=== PATIENT | male | born 1955 | race Caucasian/White ===

== ENCOUNTER 2023-04-15 10:49 | Outpatient (AMB) | payer MEDICARE, SELFPAY ==
--- NOTE | 2023-04-15 11:31 | HO.SPINEOV ---
Intake Intake Visit Reasons: radiculopathy Intake Note: Mr. Gunter is here today c/o low back pain w/tingling and numbness. MRI done @ [facility]/brought disc. Plant Quality Manager Required: No Assessment & Plan Assessment & Plan (1) Neurogenic claudication due to lumbar spinal stenosis: Code(s): M48.062 - Spinal stenosis, lumbar region with neurogenic claudication (2) Spondylolisthesis, lumbar region: Code(s): M43.16 - Spondylolisthesis, lumbar region Plan Dear colleague Thank you for referring Lenard Gunter to the office today with a chief complaint of back pain and bilateral leg numbness. HPI: this 67-year-old male who has a 1 year history of progressive low back pain and numbness and tingling, predominantly in the distal part of his bilateral legs and to a lesser degree in his buttocks and posterior thighs. The symptoms are constantly present and independent off activity. He reports no weakness. He underwent an epidural steroid injection that only helped for 2 weeks. The following conservative treatment options were tried without success antiinflammatories, tylenol, physician guided home exercise plan, cortisone shots PMH: Hypertension, gout, arthritis, asthma, GERD Social history: Medications: Enalapril, allopurinol, montulekast, vitamin-D, calcium, famotidine, nabumetone Allergies: NKDA Physical Exam: Pleasant male. no neurological deficits for upper extremities. Lower extremity show normal reflexes and strength. There is a diminished sensation from the shins into his feet and paresthesias in his posterior thighs Radiological Studies: MRI done at [facility] [place] shows a grade 1-2 L4-5 spondylolisthesis and severe associated lumbar stenosis. A dynamic lumbar x-ray today shows instability of the grade 2 spondylolisthesis L4-5. Impression/Plan: This patient is suffering from a lumbar spondylolisthesis with associated severe L4-5 spinal stenosis that causes low back pain and bilateral leg numbness. There is severe compression of the neural structures and therefore I recommended a minimally invasive correction of the lumbar spondylolisthesis via an oblique lumbar interbody fusion to indirectly decompress the neural structures. I described procedure and expected postoperative course. He will most likely go for 2nd opinion before he makes a surgical decision. Thank you for allowing me to participate in your patients care. total time spent was 50 minutes in counseling ,coordination of plan, personal review of imaging, surgical decision making and subsequent plan Martir Rendon MD, PhD Spine Fellowship Trained Neurosurgeon Director, [facility] Orders: Orders XR lumbar spine 4V min Today M43.16 - Spondylolisthesis, lumbar region, M48.062 - Spinal stenosis, lumbar region with neurogenic claudication Coding Level of Care Code New Pt Level 4 (02856) Diagnoses Neurogenic claudication due to lumbar spinal stenosis M48.062 Spondylolisthesis, lumbar region M43.16
== END 2023-04-15 12:39 | disposition home or self-care (01) ==
PROVIDERS: PCP Internal Medicine; Referring Provider Physician Assistant; Visit Provider Neurological Surgery
DX: M48.062 Spinal stenosis, lumbar region with neurogenic claudication (principal); M43.16 Spondylolisthesis, lumbar region
CPT/HCPCS: 99204

== ENCOUNTER 2023-04-15 10:49 | Outpatient (REF) | payer MEDICARE, SELFPAY ==
--- NOTE | ~2023-04-15 | XR_ITS ---
EXAMINATION: XR LUMBOSACRAL SPINE CLINICAL INFORMATION: Spondylolisthesis, lumbar region COMPARISON: None available. TECHNIQUE: 4 views of the lumbar spine, inclusive of flexion and extension views, were obtained. FINDINGS: There are 5 nonrib-bearing lumbar-type vertebral bodies. The height of vertebral bodies is well-maintained. There is mild disc space narrowing with marginal osteophyte formation at L3-L4 and L4-L5. There is mild retrolisthesis of L3 with respect to L4 and grade 1 anterolisthesis of L4 with respect to L5. This is unchanged on flexion. There is no change at retrolisthesis of L3 respect to L4 on the extension views, however, there is slight decrease in anterolisthesis of L4 on L5 on the extension views. Degenerative facet joint disease is seen at multiple levels, most pronounced at L4-L5 and L5-S1. There is question of spondylolysis at L5. XR/XR lumbar spine 4V min IMPRESSION: 1. Degenerative disc disease at L3-L4 and L4-L5. 2. Mild retrolisthesis of L3 with respect to L4 and grade 1 anterolisthesis of L4 with respect to L5, as discussed above. 3. Question of spondylolysis at L5. CT scan or MRI scan could be obtained for further evaluation.
== END 2023-04-15 10:50 | disposition home or self-care (01) ==
LOC: HO.HOSX 10:49
PROVIDERS: PCP Internal Medicine; Visit Provider Neurological Surgery
DX: M48.062 Spinal stenosis, lumbar region with neurogenic claudication (principal); M43.16 Spondylolisthesis, lumbar region
CPT/HCPCS: 72110; 99202